=== PATIENT | female | born 1970 | race Caucasian/White ===

== ENCOUNTER 2018-03-15 17:53 | Emergency (ER) | payer BC ==
[~2018-03-15] VITALS: Ht 167.6 cm; Wt 75.0 kg
[2018-03-15 17:57] VITALS: BP 145/91
[2018-03-15] MEDS ORDERED: IBUPROFEN 200 MG TABLET ONE (18:18)
[2018-03-15] MEDS ORDERED: FENT-58 TP (18:24)
[2018-03-15] MEDS ORDERED: HYDR-879 PO (18:30)
[2018-03-15] MEDS ORDERED: IBUPROFEN 200 MG TABLET PO ONE (18:30)
[2018-03-15] MEDS ORDERED: MELOXICAM (18:31)
== END 2018-03-15 20:14 | disposition home or self-care (01) ==
LOC: ED 19:24
DX: S82.61XA Displaced fracture of lateral malleolus of right fibula, initial encounter for closed fracture (principal); M79.7 Fibromyalgia; X50.1XXA Overexertion from prolonged static or awkward postures, initial encounter; Y93.89 Activity, other specified; Y92.488 Other paved roadways as the place of occurrence of the external cause; Y99.8 Other external cause status
CPT/HCPCS: 29515; 99284